=== PATIENT | female | born 1975 | race Hispanic/Latino ===

== ENCOUNTER 2016-08-24 11:54 | Emergency (ER) | payer OTHER ==
[~2016-08-24 11:54] MED LIST: AMBIEN (MONOGRAP5 MG PO; FLONASE120 SPRAY/ NASB; NAPROSYN 500 M500 MG PO; TYLENOL #31 TAB PO; ULTRAM(MONOGRAP50 MG PO; ZOFRAN4 M1 SL; [UNRECOGNIZED DRUG - OTHER] PO
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
[2016-08-24 12:24] LABS: ABSOLUTE BASOPHIL COUNT 0 /CUMM (0.0-0.2); ABSOLUTE EOSINOPHIL COUNT 0.1 /CUMM (0.0-0.7); ABSOLUTE GRANULOCYTE CT 4.1 /CUMM (1.4-6.5); ABSOLUTE LYMPH COUNT 1.3 /CUMM (1.2-3.4); ABSOLUTE MONOCYTE COUNT 0.6 /CUMM (0.10-0.60); BASOPHIL % 0.4 % (0.0-2.0); EOSINOPHIL % 2.1 % (0-5); GRANULOCYTE % 67.2 % (42.2-75.2); HEMATOCRIT 40.4 % (37-47); MEAN CORPUSCULAR HGB 30.3 PG (27.0-31.0); MEAN CORPUSCULAR HGB CONC 33.7 G/DL (33.0-37.0); MEAN CORPUSCULAR VOLUME 89.9 FL (81.0-99.0); MEAN PLATELET VOLUME 9.7 FL (7.4-10.4); PLATELET COUNT 211 /CUMM (130-400); RBC DISTRIBUTION WIDTH 12.9 % (11.5-14.5); WHITE BLOOD CELL COUNT 6.2 /CUMM (4.8-10.8)
--- NOTE | 2016-08-24 13:28 | RADIOLOGY REPORT ---
EXAMINATION: XR CHEST CLINICAL INFORMATION: Chest pain. COMPARISON: Chest x-ray dated 07/06/2012. TECHNIQUE: 2 views of the chest were obtained. FINDINGS: The cardiomediastinal silhouette is within normal limits in size. Lungs bilaterally are symmetrically expanded and clear. No effusion or pneumothorax is seen. Bony structures are unremarkable. IMPRESSION: Unremarkable examination.
[2016-08-24] MEDS ORDERED: ASPIRIN81 M4 PO (14:45)
[2016-08-24] MEDS ORDERED: PROAIR HFA8.5 GM INH (14:45)
[2016-08-24 19:26] VITALS: BP 131/60
[2016-08-24] MEDS ORDERED: PROVENTIL HFA6.7 GM INH (19:39)
[2016-08-24] MEDS ORDERED: FIORICET 50-301 EACH PO (19:40)
== END 2016-08-24 19:45 ==
LOC: ERH 11:54
PROVIDERS: Physician Assistant Medical
DX: R07.89 Other chest pain (principal)
CPT/HCPCS: 81001; 81025; 93005; 93010; 96374; J2405

== ENCOUNTER 2016-10-14 23:20 | Emergency (ER) | payer OTHER ==
[~2016-10-14] VITALS: Ht 149.9 cm; Wt 93.0 kg
[~2016-10-14 23:20] MED LIST changes: +ASPIRIN81 M4 PO; +FIORICET 50-301 EACH PO; +PROAIR HFA8.5 GM INH; +PROVENTIL HFA6.7 GM INH
[2016-10-15] VITALS: BP 124/76
--- NOTE | 2016-10-15 00:09 | ED UPPER/LOWER EXTREMITY COMPL ---
History of Present Illness General Chief Complaint: Hand or Wrist Injury Stated Complaint: RIGHT RING FINGER PAIN Source: patient Exam Limitations: no limitations Vital Signs & Intake/Output Vital Signs & Intake/Output Vital Signs Date Time Temp Pulse Resp B/P Pulse O2 O2 Flow FiO2 Ox Delivery Rate 10/15 0006 98 Room Air 10/15 0000 96.9 66 18 124/76 98 Room Air Allergies Coded Allergies: Penicillins (Intermediate, HIVES 08/24/16) acetaminophen (From EXCEDRIN MIGRAINE) (HIVES, THROAT CLOSES 08/24/16) aspirin (From EXCEDRIN MIGRAINE) (HIVES, THROAT CLOSES 08/24/16) caffeine (From EXCEDRIN MIGRAINE) (HIVES, THROAT CLOSES 08/24/16) Reconcile Medications Albuterol Sulfate (Proair Hfa) 90 MCG HFA.AER.AD 2 PUF INH Q4-6 PRN PRN BREATHING PROBLEMS (Reported) Albuterol Sulfate (Proventil Hfa) 90 MCG HFA.AER.AD 2 PUF INH Q4 sob Aspirin (Aspirin*) 81 MG TAB.CHEW 1 TAB PO DAILY HEART HEALTH (Reported) Butalb/Acetaminophen/Caffeine (Fioricet 50-300-40 MG Capsule) 50 MG-300 MG-40 MG CAPSULE 1-2 TAB PO Q8P PRN HEADACHE Triage Note: RT FINGER SWOLLEN, NEEDS RING CUT OFF Triage Nurses Notes Reviewed? yes Onset: Gradual Duration: getting worse Timing: single episode today Severity: moderate Severity Numbers: 5 : No Patient currently breastfeeds: No HPI: Patient is a 41-year-old female who presents emergency room with concerns of hand swelling which she has a ring to the right fourth digit where she thinks she needs it immediately removed. Patient tried multiple attempts to remove it by herself which she cannot. She states the ringing is made of titanium Symptoms began 1 hour prior to arrival (JAMES ZHENG) Past History Travel History Traveled to [place] past 21 day No Medical History Any Pertinent Medical History? see below for history Neurological: migraine, vertigo EENT: NONE Cardiovascular: GESTATIONAL HTN Respiratory: asthma Gastrointestinal: NONE Hepatic: NONE Renal: KIDNEY INFECTION Musculoskeletal: NONE Psychiatric: NONE Endocrine: NONE Blood Disorders: NONE Cancer(s): NONE Surgical History Surgical History: tubal ligation, EYE SX X 3 Psychosocial History What is your primary language Yi Tobacco Use: Never used Family History Hx Contributory? No (JAMES ZHENG) Review of Systems Review of Systems Constitutional: Reports: no symptoms. EENTM: Reports: no symptoms. Respiratory: Reports: no symptoms. Cardiovascular: Reports: no symptoms. Gastrointestinal/Abdominal: Reports: no symptoms. Genitourinary: Reports: no symptoms. Musculoskeletal: Reports: see HPI, joint swelling. Skin: Reports: see HPI. Neurological/Psychological: Reports: no symptoms. Hematologic/Endocrine: Reports: no symptoms. Immunological: Reports: no symptoms. All Other Systems: Reviewed and Negative (JAMES ZHENG) Physical Exam Physical Exam General Appearance: no apparent distress, alert, comfortable Neurologic/Tendon: normal sensation, normal motor functions, normal tendon functions, responds to pain, no evidence tendon injury, no pulse deficit Skin: intact, normal color, warm/dry Comments: Well-developed well-nourished patient in no apparent distress. HEENT: Atraumatic, extraocular motion intact Neck: Supple, FROM, no lymphadenopathy Back: FROM, Nontender Cardiovascular: Regular rate and rhythms no murmurs rubs or gallops, Respiratory: Chest nontender.There were no bony deformities, no asymmetry. No respiratory distress. Patient speaking in full complete sentences. Breath sounds clear to auscultation bilaterally: NO W/R/R Neuro: Alert and oriented x3 Skin: Warm & dry;No appreciable rash on exposed skin Psych: Mood affect normal, normal memory normal judgment. Diagram Hands Front 1) Noted titanium ring with mild digit swelling Sensation intact nontender Ring is tightly fitting however is movable No erythema no warmth Dermatomes intact Capillary refill intact less than 2 seconds (JAMES ZHENG) Progress Differential Diagnosis: arterial insufficiency, compartment syndrome, contusion, dislocation, sprain, tendon injury Plan of Care: Current Medications Sig/Lv Start time Last Medication Dose Stop Time Status Admin Diphenhydramine HCl 25 MG ONCE ONE 10/15 99 UNVr (Benadryl) 10/15 100 After attempting to cut ring with the ring cutter there was not successful. Patient then was given icing attempt and Benadryl. Patient currently in no apparent distress No concern of neurovascular compromise Discussed hand off with DR. KOVACS (JAMES ZHENG) Hand-Off Endorsed To: PATRICK KOVACS MD Endorsed Time: 103 Pending: other (JAMES ZHENG) Departure Departure Disposition: HOME OR SELF CARE Condition: Stable Clinical Impression Primary Impression: Tight ring on finger Referrals: DEBORA HILL,KATE (PCP/Family) Departure Forms: Customer Survey General Discharge Information (CHELLY BLEDSOE,) PA/BISQUE PLACER Co-Sign Statement Statement: ED Attending supervision documentation- [] I saw and evaluated the patient. I have also reviewed all the pertinent lab results and diagnostic results. I agree with the findings and the plan of care as documented in the PA's/BISQUE PLACER's documentation. [X] I have reviewed the ED Record and agree with the PA's/BISQUE PLACER's documentation. [] Additions or exceptions (if any) to the PAs/BISQUE PLACER's note and plan are summarized below: [] (FERMÍN HILL,PATRICK)
== END 2016-10-15 01:44 ==
LOC: ERH 23:20
DX: M79.89 Other specified soft tissue disorders (principal)

== ENCOUNTER 2016-12-03 15:02 | Emergency (ER) | payer OTHER ==
[~2016-12-03] VITALS: Ht 149.9 cm; Wt 100.2 kg
[2016-12-03 15:08] VITALS: BP 132/87
--- NOTE | 2016-12-03 15:52 | ED GI/GU/ABDOMINAL COMPLAINT ---
History of Present Illness General Chief Complaint: Abdominal Pain/Flank Pain Stated Complaint: L FLANK PAIN Source: patient Exam Limitations: no limitations Vital Signs & Intake/Output Vital Signs & Intake/Output Vital Signs Date Time Temp Pulse Resp B/P B/P Pulse O2 O2 Flow FiO2 Mean Ox Delivery Rate 12/03 1508 95.4 73 18 132/87 ED Intake and Output 12/04 0000 12/03 1200 Intake Total 1000 Output Total Balance 1000 Intake, IV 1000 Patient 221 lb Weight Weight Reported by Patient Measurement Method Allergies Coded Allergies: Penicillins (Intermediate, HIVES 08/24/16) acetaminophen (From EXCEDRIN MIGRAINE) (HIVES, THROAT CLOSES 08/24/16) aspirin (From EXCEDRIN MIGRAINE) (HIVES, THROAT CLOSES 08/24/16) caffeine (From EXCEDRIN MIGRAINE) (HIVES, THROAT CLOSES 08/24/16) Reconcile Medications Albuterol Sulfate (Proair Hfa) 90 MCG HFA.AER.AD 2 PUF INH Q4-6 PRN PRN BREATHING PROBLEMS (Reported) Albuterol Sulfate (Proventil Hfa) 90 MCG HFA.AER.AD 2 PUF INH Q4 sob Aspirin (Aspirin*) 81 MG TAB.CHEW 1 TAB PO DAILY HEART HEALTH (Reported) Butalb/Acetaminophen/Caffeine (Fioricet 50-300-40 MG Capsule) 50 MG-300 MG-40 MG CAPSULE 1-2 TAB PO Q8P PRN HEADACHE Ibuprofen 800 MG TABLET 1 TAB PO TID PRN PAIN Ondansetron (Zofran Odt) 4 MG TAB.RAPDIS 1 TAB PO Q6 PRN NAUSEA Oxycodone HCl/Acetaminophen (Percocet 5-325 MG Tablet) 5 MG-325 MG TABLET 1 TAB PO Q4-6 PRN BREAKTHROUGH PAIN Tamsulosin HCl (Flomax) 0.4 MG CAP.ER.24H 1 CAP PO DAILY KIDNEY STONE Triage Note: C/O LEFT ABDOMINAL AND FLANK PAIN SINCE 0200 THIS AM, WITH SWEATING AND NAUSEA. Triage Nurses Notes Reviewed? yes ? N Is pt currently ? No Onset: Abrupt Duration: hour(s): (SEVERAL) Timing: multiple episodes today Quality/Severity: sharpness, severe Severity Numbers: 10 Location: left flank Radiation: LLQ Activities at Onset: sleep HPI: This is a 41-year-old female with history of previous pyelonephritis presents with sudden onset sever left sharp 10/10 left flank pain which woke her up from sleep at 2 am. No vomiting but positive nausea. Urinary frequency and noted some blood in her urine but she is also currently menstruating. Pain is in left flank and radiates to her LLQ. No fever or chillss. Denies any change in her stools. Past History Travel History Traveled to [place] past 21 day No Medical History Any Pertinent Medical History? see below for history Neurological: migraine, vertigo EENT: NONE Cardiovascular: GESTATIONAL HTN Respiratory: asthma Gastrointestinal: NONE Hepatic: NONE Renal: KIDNEY INFECTION Musculoskeletal: NONE Psychiatric: NONE Endocrine: NONE Blood Disorders: NONE Cancer(s): NONE Surgical History Surgical History: tubal ligation, EYE SX X 3 Psychosocial History What is your primary language Slovak Tobacco Use: Never used ETOH Use: denies use Family History Hx Contributory? No Review of Systems Review of Systems Constitutional: Denies: chills, fever. EENTM: Reports: no symptoms. Respiratory: Reports: no symptoms. Cardiovascular: Denies: chest pain. GI: Reports: abdominal pain, nausea. Genitourinary: Reports: frequency, hematuria. Denies: dysuria. Musculoskeletal: Reports: back pain. Skin: Reports: no symptoms. Neurological/Psychological: Reports: no symptoms. Hematologic/Endocrine: Reports: polyuria. Denies: bruising, bleeding, polydipsia. Immunologic/Allergic: Denies: splenectomy. All Other Systems: Reviewed and Negative Physical Exam Physical Exam General Appearance: well developed/nourished, alert, awake, anxious, mild distress, moderate distress, obese Head: atraumatic, normal appearance Eyes: Bilateral: normal appearance, PERRL, EOMI. Ears, Nose, Throat, Mouth: hearing grossly normal, moist mucous membrane Neck: normal inspection, supple, full range of motion Respiratory: normal breath sounds, chest non-tender, no respiratory distress Cardiovascular: regular rate/rhythm Peripheral Pulses: 2+ radial (R), 2+ radial (L) Gastrointestinal: normal bowel sounds, soft, TENDER LEFT FLANK Back: normal inspection, normal range of motion, CVA tenderness (L) Neurologic/Psych: no motor/sensory deficits, awake, alert, oriented x 3 Skin: intact, normal color, warm/dry Core Measures ACS in differential dx? No Severe Sepsis Present: No Septic Shock Present: No Progress Differential Diagnosis: kidney stone, UTI/pyelo, AORTIC DISSECTION Plan of Care: Orders Procedure Date/time Status COMPREHENSIVE METABOLIC PANEL 12/03 1558 Complete CBC WITHOUT DIFFERENTIAL 12/03 1558 Complete URINALYSIS 12/03 1511 Complete Laboratory Tests 12/03/16 1640: CBC w Diff NO MAN DIFF REQ, RBC 4.25, MCV 89.6, MCH 30.2, RDW 13.1, MPV 9.7, Gran % 82.0 H, Lymphocytes % 11.5 L, Monocytes % 5.3, Eosinophils % 1.0, Basophils % 0.2, Absolute Granulocytes 7.2 H, Absolute Lymphocytes 1.0 L, Absolute Monocytes 0.5, Absolute Eosinophils 0.1, Absolute Basophils 0, PUBS MCHC 33.7 12/03/16 1615: Anion Gap 9, Estimated GFR > 60, BUN/Creatinine Ratio 15.0, Glucose 97, Calcium 8.9, Total Bilirubin 0.6, AST 46 H, ALT 56 H, Alkaline Phosphatase 61, Total Protein 7.3, Albumin 4.3, Globulin 3.0, Albumin/Globulin Ratio 1.4 12/03/16 1518: Urine Color PINK H, Urine Clarity HAZY H, Urine pH 5.5, Ur Specific Mcewen 1.025, Urine Protein 30 H, Urine Ketones NEG, Urine Nitrite NEG, Urine Bilirubin NEG, Urine Urobilinogen 0.2, Ur Leukocyte Esterase TRACE H, Ur Microscopic SEDIMENT EXAMINED, Urine RBC >75 H, Urine WBC 1-3 H, Ur Epithelial Cells RARE, Urine Bacteria MANY H, Urine Hemoglobin LARGE H, Urine Glucose NEG LABS, URINALYSIS, CT SCAN ORDERED. PAIN RESOLVED AFTER IV TORADOL, MILD NAUSEA. PENDING CT SCAN ABD/PELVIS. PATIENT COMFORTABLE. CT SCAN RESULTS DISCUSSED WITH PATIENT AND . WILL FOLLOW UP WITH DR MOULTON IN THE OFFICE. URINARY STRAINER GIVEN. RX SENT TO PHARMACY. ([facility],PATRICK) Diagnostic Imaging: Viewed by Me: CT Scan. Discussed w/RAD: CT Scan. Radiology Impression: PATIENT: SP OCONNELL PRESENT AGE: 41 PATIENT ACCOUNT NO: [id number] : 76 LOCATION: [facility] ORDERING PHYSICIAN: PATRICK KOVACS MD SERVICE DATE: 12/03/16-1599 EXAM TYPE: CAT - CT ABD & PELVIS W/O IV CONTRAS EXAMINATION: CT ABDOMEN AND PELVIS WITHOUT CONTRAST CLINICAL INFORMATION: Severe left flank pain radiating to left lower quadrant. COMPARISON: None TECHNIQUE: Multidetector volumetric imaging was performed from the superior aspect of the liver through the pubic symphysis. Sagittal and coronal reformatted images were obtained on the technologist's workstation. No oral or intravenous contrast. DLP: 762.49 mGy-cm FINDINGS: LUNG BASES: The visualized lung bases are unremarkable. LIVER, GALLBLADDER, AND BILIARY TREE: The liver is normal in size, shape, and attenuation. No focal hepatic lesion or biliary ductal dilatation is present. The gallbladder is unremarkable with no evidence of radiopaque gallstones, gallbladder wall thickening, or obvious pericholecystic inflammatory changes. PANCREAS: Unremarkable. SPLEEN: Unremarkable. ADRENAL GLANDS: Unremarkable. KIDNEYS AND URETERS: There is mild dilatation of left renal collecting system involving the renal pelvis calyces and left ureter to the ureterovesical junction. There is no renal or ureteral stone. There is nonobstructive stones in the right kidney. In the upper pole there is a less than 1 mm stone. In the lower pole there is a 2 mm stone and a 1 mm stone. There is no stone in the right ureter and no hydronephrosis of the right kidney. BLADDER: At the posterior right dependent bladder there is a 2 mm calcification which is likely a small stone in the bladder. Cannot entirely exclude phlebolith however. Axial image 601 (3). GASTROINTESTINAL TRACT: The small and large bowel are unremarkable. The appendix is unremarkable. ABDOMINAL WALL: No significant hernia is appreciated. LYMPH NODES: Normal. VASCULAR: Unremarkable. PELVIC VISCERA: 2.4 cm ovarian follicle/ cyst with density measurement of 10 Hounsfield units OSSEOUS STRUCTURES: Unremarkable. IMPRESSION: Mild hydronephrosis of the left collecting system to the ureterovesical junction without renal or ureteral stone. There is a 2 mm calcification in the right side of the pelvis which could be a small bladder stone. DICTATED BY: TRACI CHACON MD DATE/TIME DICTATED:12/03/161625 RENT COLLECTOR:GLORIA DATE/TIME TRANSCRIBED:12/03/161625 CONFIDENTIAL, DO NOT COPY WITHOUT APPROPRIATE AUTHORIZATION. <Electronically signed in Other Vendor System> SIGNED BY: TRACI CHACON MD 12/03/16 1642 Initial ED EKG: none Departure Departure Time of Disposition: 170 Disposition: HOME OR SELF CARE Condition: Stable Clinical Impression Primary Impression: Renal colic on left side Referrals: KATE CAZARES MD (PCP/Family) Additional Instructions: Daily Flomax, Zofran, ibuprofen and a Percocet as started. Her prescriptions are at [facility]. Please drink plenty of fluids. Follow up with Dr. Moulton in the office regarding her symptoms. Return as needed. Departure Forms: Customer Survey General Discharge Information Prescriptions: Current Visit Scripts Tamsulosin HCl (Flomax) 1 CAP PO DAILY #14 CAP Ondansetron (Zofran Odt) 1 TAB PO Q6 PRN NAUSEA #20 TAB Ibuprofen 1 TAB PO TID PRN PAIN #20 TAB Oxycodone HCl/Acetaminophen (Percocet 5-325 MG Tablet) 1 TAB PO Q4-6 PRN BREAKTHROUGH PAIN #10 TAB
--- NOTE | 2016-12-03 16:42 | CT SCAN REPORT ---
EXAMINATION: CT ABDOMEN AND PELVIS WITHOUT CONTRAST CLINICAL INFORMATION: Severe left flank pain radiating to left lower quadrant. COMPARISON: None TECHNIQUE: Multidetector volumetric imaging was performed from the superior aspect of the liver through the pubic symphysis. Sagittal and coronal reformatted images were obtained on the technologist's workstation. No oral or intravenous contrast. DLP: 762.49 mGy-cm FINDINGS: LUNG BASES: The visualized lung bases are unremarkable. LIVER, GALLBLADDER, AND BILIARY TREE: The liver is normal in size, shape, and attenuation. No focal hepatic lesion or biliary ductal dilatation is present. The gallbladder is unremarkable with no evidence of radiopaque gallstones, gallbladder wall thickening, or obvious pericholecystic inflammatory changes. PANCREAS: Unremarkable. SPLEEN: Unremarkable. ADRENAL GLANDS: Unremarkable. KIDNEYS AND URETERS: There is mild dilatation of left renal collecting system involving the renal pelvis calyces and left ureter to the ureterovesical junction. There is no renal or ureteral stone. There is nonobstructive stones in the right kidney. In the upper pole there is a less than 1 mm stone. In the lower pole there is a 2 mm stone and a 1 mm stone. There is no stone in the right ureter and no hydronephrosis of the right kidney. BLADDER: At the posterior right dependent bladder there is a 2 mm calcification which is likely a small stone in the bladder. Cannot entirely exclude phlebolith however. Axial image 601 (3). GASTROINTESTINAL TRACT: The small and large bowel are unremarkable. The appendix is unremarkable. ABDOMINAL WALL: No significant hernia is appreciated. LYMPH NODES: Normal. VASCULAR: Unremarkable. PELVIC VISCERA: 2.4 cm ovarian follicle/cyst with density measurement of 10 Hounsfield units OSSEOUS STRUCTURES: Unremarkable. IMPRESSION: Mild hydronephrosis of the left collecting system to the ureterovesical junction without renal or ureteral stone. There is a 2 mm calcification in the right side of the pelvis which could be a small bladder stone.
[2016-12-03 16:58] LABS: ABSOLUTE BASOPHIL COUNT 0 /CUMM (0.0-0.2); ABSOLUTE EOSINOPHIL COUNT 0.1 /CUMM (0.0-0.7); ABSOLUTE GRANULOCYTE CT 7.2 /CUMM (1.4-6.5); ABSOLUTE MONOCYTE COUNT 0.5 /CUMM (0.10-0.60); BASOPHIL % 0.2 % (0.0-2.0); HEMATOCRIT 38.1 % (37-47); MEAN CORPUSCULAR HGB 30.2 PG (27.0-31.0); MEAN CORPUSCULAR HGB CONC 33.7 G/DL (33.0-37.0); MEAN CORPUSCULAR VOLUME 89.6 FL (81.0-99.0); MEAN PLATELET VOLUME 9.7 FL (7.4-10.4); PLATELET COUNT 224 /CUMM (130-400); RBC DISTRIBUTION WIDTH 13.1 % (11.5-14.5); RED BLOOD CELL CT 4.25 /CUMM (4.20-5.40); WHITE BLOOD CELL COUNT 8.7 /CUMM (4.8-10.8)
[2016-12-03] MEDS ORDERED: ZOFRAN ODT4 M1 PO (17:06)
[2016-12-03] MEDS ORDERED: FLOMAX0.4 M1 PO (17:06)
[2016-12-03] MEDS ORDERED: PERCOCET 5-3251 EACH PO (17:06)
[2016-12-03] MEDS ORDERED: IBUPROFEN800 M1 PO (17:06)
== END 2016-12-03 18:00 ==
LOC: ERH 15:02
PROVIDERS: Emergency Medicine
DX: N23 Unspecified renal colic (principal)
CPT/HCPCS: 74176; 81001; 96361; 96374; J1885

== ENCOUNTER 2016-12-14 19:03 | Emergency (ER) | payer OTHER ==
[~2016-12-14] VITALS: Ht 149.9 cm; Wt 102.1 kg
[~2016-12-14 19:03] MED LIST changes: +FLOMAX0.4 M1 PO; +IBUPROFEN800 M1 PO; +PERCOCET 5-3251 EACH PO; +ZOFRAN ODT4 M1 PO
[2016-12-14 19:17] VITALS: BP 121/64
--- NOTE | 2016-12-14 20:05 | ED CARDIAC/CP/PALPITATIONS ---
History of Present Illness General Chief Complaint: Chest Pain Stated Complaint: CHEST PAIN AND PALPITATIONS Source: patient, old records Exam Limitations: no limitations Vital Signs & Intake/Output Vital Signs & Intake/Output Vital Signs Date Time Temp Pulse Resp B/P B/P Pulse O2 O2 Flow FiO2 Mean Ox Delivery Rate 12/14 1916 97.9 97 18 121/64 97 Room Air Allergies Coded Allergies: Penicillins (Intermediate, HIVES 08/24/16) acetaminophen (From EXCEDRIN MIGRAINE) (HIVES, THROAT CLOSES 08/24/16) caffeine (From EXCEDRIN MIGRAINE) (HIVES, THROAT CLOSES 08/24/16) Reconcile Medications Albuterol Sulfate (Proair Hfa) 90 MCG HFA.AER.AD 2 PUF INH Q4-6 PRN PRN BREATHING PROBLEMS (Reported) Albuterol Sulfate (Proventil Hfa) 90 MCG HFA.AER.AD 2 PUF INH Q4 sob Aspirin (Aspirin*) 81 MG TAB.CHEW 1 TAB PO DAILY HEART HEALTH (Reported) Butalb/Acetaminophen/Caffeine (Fioricet 50-300-40 MG Capsule) 50 MG-300 MG-40 MG CAPSULE 1-2 TAB PO Q8P PRN HEADACHE Ibuprofen 800 MG TABLET 1 TAB PO TID PRN PAIN Ondansetron (Zofran Odt) 4 MG TAB.RAPDIS 1 TAB PO Q6 PRN NAUSEA Oxycodone HCl/Acetaminophen (Percocet 5-325 MG Tablet) 5 MG-325 MG TABLET 1 TAB PO Q4-6 PRN BREAKTHROUGH PAIN Tamsulosin HCl (Flomax) 0.4 MG CAP.ER.24H 1 CAP PO DAILY KIDNEY STONE Triage Note: PT TO TRIAGE WITH C/O EPISODE OF MIDDLE/UPPER BACK 04/15 RADIATING TO CHEST FOR 2MIN AN HOUR AGO ALSO PALPITATIONS SINCE THIS MORNING. PT DENIES CHEST PAIN AT THIS TIME. VSS. EKG- NSR. Triage Nurses Notes Reviewed? yes Onset: Abrupt Duration: day(s): (1), better, intermittent, waxing and waning Timing: recent history Quality/Severity: mild, moderate, aching Location: R SIDED Radiation: back Activities at Onset: none Prior Chest Pain/Card Workup: no prior chest pain Nitro Today/Relief: no nitro taken today Aspirin Today: 81 mg x 1, provided at home Associated Symptoms: DENIES : No Patient currently breastfeeds: No HPI: 41-year-old female presents to ER for evaluation complaining of right-sided chest pain radiating to her back and intermittent in nature that began around 8: 00 this morning while at rest. She took an aspirin and states his symptoms resolved approximately 20 minutes after there is no pain with inspiration, no shortness of breath no cough no hemoptysis. She denies any recent immobility no leg swelling noted all pain nausea vomiting diarrhea. No family history of sudden cardiac disease she denies alcohol tobacco or drug use. There are no modifying factors or associated symptoms otherwise. She is asymptomatic at this time Past History Travel History Traveled to [place] past 21 day No Medical History Any Pertinent Medical History? see below for history Neurological: migraine, vertigo EENT: NONE Cardiovascular: GESTATIONAL HTN Respiratory: asthma Gastrointestinal: NONE Hepatic: NONE Renal: KIDNEY INFECTION Musculoskeletal: NONE Psychiatric: NONE Endocrine: NONE Blood Disorders: NONE Cancer(s): NONE Surgical History Surgical History: tubal ligation, EYE SX X 3 Psychosocial History What is your primary language Khmer Tobacco Use: Never used Family History Hx Contributory? No Review of Systems Review of Systems Constitutional: Reports: see HPI. Comments Review of systems: See HPI, All other systems negative. Constitutional, no chills no fever, no malaise HEENT: No visual changes no sore throat no congestion Cardiovascular:chest pain , no palpitation , no orthopnea Skin: no rashes, no change in skin Respiratory: No dyspnea no cough no sputum no hemoptysis GI: No nausea no vomiting, no diarrhea, : No dysuria Muscle skeletal: No joint pain, , no back pain, no neck pain, Neurologic: No numbness no headache Psych: No stress Heme/endocrine: No bruising Immunology: No lymphadenopathy Physical Exam Physical Exam General Appearance: well developed/nourished, alert, awake Cardiovascular: regular rate/rhythm Comments: Well-developed well-nourished person in no acute distress HEENT: Normal EENT exam; PERRL, EOMI, HEAD is atraumatic. moist mucous membranes. Neck: Supple, normal range of motion Back: Nontender, no CVA tenderness. Full range of motion Cardiovascular: Regular rate and rhythms no murmurs rubs Respiratory: Chest nontender.There were no bony deformities, no asymmetry. No respiratory distress. Patient speaking in full complete sentences. Breath sounds clear to auscultation bilaterally: NO W/R/R Abdomen: Soft, nontender nondistended, no appreciable organomegaly. Normal bowel sounds. No rebound/guarding, Extremity: No edema, full range of motion of extremities Neuro: Alert oriented x3, motor sensory normal, . There were no obvious focal neurologic abnormalities. Skin: No appreciable rash on exposed skin, skin is warm and dry. Psych: Mood and affect is normal, memory and judgment is normal. Core Measures ACS in differential dx? Yes Severe Sepsis Present: No Septic Shock Present: No All Positive = PERC Ruled Out: Positive: age < 50 years, heart rate < 100 bpm, O2 sat > 94%, no hemoptysis, no hormone use, no prior DVT or PE, no unilateral leg swellin, no surgery/trauma w/ in 4w. Progress Differential Diagnosis: AMI, aortic dissection, atrial fibrillation, cholecystitis, CHF/pulm edema, costochondritis, musculoskeletal pain, myocarditis, pancreatitis, pericarditis, pneumonia, pneumothorax, PSVT, pulmonary embolism, PUD/GERD, unstable angina Plan of Care: Orders Procedure Date/time Status URINE 12/15 2007 Complete TROPONIN LEVEL 12/14 1913 Complete COMPREHENSIVE METABOLIC PANEL 12/14 1913 Complete CBC WITHOUT DIFFERENTIAL 12/14 1913 Complete EKG 12/14 1902 Active Laboratory Tests 12/14/162028: Anion Gap 10, Estimated GFR > 60, BUN/Creatinine Ratio 21.3, Glucose 91, Calcium 8.9, Total Bilirubin 0.5, AST 25, ALT 50, Alkaline Phosphatase 57, Troponin I < 0.01, Total Protein 6.8, Albumin 3.9, Globulin 2.9, Albumin/Globulin Ratio 1.3, CBC w Diff NO MAN DIFF REQ, RBC 4.11 L, MCV 89.4, MCH 30.1, RDW 13.2, MPV 9.6, Gran % 66.4, Lymphocytes % 23.5, Monocytes % 7.7, Eosinophils % 2.0, Basophils % 0.4, Absolute Granulocytes 5.0, Absolute Lymphocytes 1.8, Absolute Monocytes 0.6 , Absolute Eosinophils 0.2, Absolute Basophils 0, PUBS MCHC 33.6 12/14/162020: Urine Test NEGATIVE Labs ordered patient denies any complaints at this time normal sinus on the monitor perc negative, no pain with inspiration, no hemoptysis no cough no shortness of breath the patient has been asymptomatic throughout ER stay Case discussed Dr. Issa agrees with plan Repeat evaluation patient has been resting in no apparent distress, she's been asymptomatic here, perc negative. sx presents for greater then 12 hours, i dont not belive pt requires repeat trop I discussed with the patient at length all of their results. I had an extensive conversation regarding need for close follow up with their primary care physician this week as well as return precautions. I answered all of their questions, they feel comfortable with the plan and follow-up care. (REMBERTO BLEDSOE,) Diagnostic Imaging: Viewed by Me: Radiology Read. Discussed w/RAD: Radiology Read. Radiology Impression: PATIENT: SP OCONNELL PRESENT AGE: 41 PATIENT ACCOUNT NO: [id number] : 76 LOCATION: [facility] ORDERING PHYSICIAN: JAMES BLDESOE SERVICE DATE: 12/14/16 EXAM TYPE: RAD - XRY-CHEST XRAY, PA AND LATERAL EXAMINATION: XR CHEST CLINICAL INFORMATION: 41-year-old woman with chest pain. COMPARISON: 08/24/2016 chest radiograph TECHNIQUE: 2 views of the chest were obtained. FINDINGS: The lungs are relatively well expanded and clear, without evidence of focal consolidation or pulmonary edema. Cardiomediastinal contours are stable and within the range of normal. There are no pleural effusions. IMPRESSION: No radiographic evidence of an acute cardiopulmonary process. DICTATED BY: SYLVIE CALVILLO MD DATE/TIME DICTATED :12/14/162149 ADDICTIONS THERAPIST:GLORIA DATE/TIME TRANSCRIBED:12/14/162149 CONFIDENTIAL, DO NOT COPY WITHOUT APPROPRIATE AUTHORIZATION. < Electronically signed in Other Vendor System> SIGNED BY: SYLVIE CALVILLO MD 04/22 Initial ED EKG: normal intervals, normal p-waves, normal QRS complex, normal sinus rhythm (90) Prior EKG: unchanged (08/2016) Rhythm Strip: normal sinus rhythm Departure Departure Time of Disposition: 2157 Disposition: HOME OR SELF CARE Condition: Stable Clinical Impression Primary Impression: Atypical chest pain Referrals: KATE CAZARES MD (PCP/Family) Additional Instructions: Follow-up with your primary care physician. Return to ER with any concerns. Departure Forms: Customer Survey General Discharge Information Critical Care Note Critical Care Note Critical Care Time: non-applicable
[2016-12-14 20:37] LABS: ABSOLUTE BASOPHIL COUNT 0 /CUMM (0.0-0.2); ABSOLUTE EOSINOPHIL COUNT 0.2 /CUMM (0.0-0.7); ABSOLUTE LYMPH COUNT 1.8 /CUMM (1.2-3.4); ABSOLUTE MONOCYTE COUNT 0.6 /CUMM (0.10-0.60); BASOPHIL % 0.4 % (0.0-2.0); GRANULOCYTE % 66.4 % (42.2-75.2); HEMATOCRIT 36.8 % (37-47); MEAN CORPUSCULAR HGB 30.1 PG (27.0-31.0); MEAN CORPUSCULAR HGB CONC 33.6 G/DL (33.0-37.0); MEAN CORPUSCULAR VOLUME 89.4 FL (81.0-99.0); MEAN PLATELET VOLUME 9.6 FL (7.4-10.4); PLATELET COUNT 210 /CUMM (130-400); RBC DISTRIBUTION WIDTH 13.2 % (11.5-14.5); RED BLOOD CELL CT 4.11 /CUMM (4.20-5.40); WHITE BLOOD CELL COUNT 7.5 /CUMM (4.8-10.8)
--- NOTE | 2016-12-14 21:54 | RADIOLOGY REPORT ---
EXAMINATION: XR CHEST CLINICAL INFORMATION: 41-year-old woman with chest pain. COMPARISON: 08/24/2016 chest radiograph TECHNIQUE: 2 views of the chest were obtained. FINDINGS: The lungs are relatively well expanded and clear, without evidence of focal consolidation or pulmonary edema. Cardiomediastinal contours are stable and within the range of normal. There are no pleural effusions. IMPRESSION: No radiographic evidence of an acute cardiopulmonary process.
== END 2016-12-14 22:05 ==
LOC: ERH 19:03
PROVIDERS: Physician Assistant Medical
DX: R07.89 Other chest pain (principal)
CPT/HCPCS: 81025; 93005; 93010